=== PATIENT | male | born 1970 | race Caucasian/White ===

== ENCOUNTER 2023-08-27 15:06 | Emergency (ER) | payer OTHER ==
--- NOTE | 2023-08-27 15:09 | ERPHSYRPT ---
- History of Present Illness Time Seen by Provider: 08/27/23 15:09 Source: patient, family Exam Limitations: no limitations Physician History: This is an overweight 53-year-old white male patient who for the last 2 to 3 weeks has been feeling fatigued and noticed increased thirst and increased urination. A few days ago, the patient was seen by his primary care provider who is stationed at a different, outside facility and is awaiting lab results. Today, he was out in the sun and heat and was at a [employer] and experienced increased fatigue and dizziness. A friend at the [employer] had a glucometer and it read "high". Typically this means a blood sugar greater than 600. When the patient arrived to the emergency department here at [facility], we repeated the frlio-fm-xsuj/Accu-Chek blood sugar level. Our glucometer also read "high". Patient has never been diagnosed with diabetes and that was what he was being worked up for. Patient denies chest pain. He has no shortness of breath. He denies abdominal pain. He has not had any nausea vomiting or diarrhea symptoms. Patient does have a history of hypertension and anxiety/depression issues Timing/Duration: week(s) (2 to 3 weeks), worse Severity: moderate Associated Symptoms: malaise, weakness, other (Increased thirst and increased urination), No nausea, No vomiting, No abdominal pain Allergies/Adverse Reactions: No Known Drug Allergies Allergy (Verified 08/27/23 15:20) Home Medications: Bupropion HCl Xl 150 mg [Wellbutrin XL 150 MG] 150 mg PO DAILY 08/27/23 [History] Lisinopril 20 mg [Zestril 20 MG] 20 mg PO DAILY 08/27/23 [History] Loratadine 10 mg [Claritin 10 mg] 10 mg PO DAILY 08/27/23 [History] Magnesium Oxide 400 mg [Mag-Ox 400] 400 mg PO DAILY 08/27/23 [History] Propranolol HCl 20 mg PO TID 08/27/23 [History] Sertraline HCl 50 mg [Zoloft 50 mg Tablet] 50 mg PO DAILY 08/27/23 [History] Vitamin B Complex 1 tab PO DAILY 08/27/23 [History] Travel Risk - International Travel Have you traveled outside of the country in past 3 weeks: No - Emerging Infectious Disease Are you exhibiting symptoms associated with any current EIDs: No - Review of Systems Constitutional: Fatigue, Weakness Eyes: No Symptoms Ears, Nose, & Throat: No Symptoms Respiratory: No Symptoms Cardiac: No Symptoms Abdominal/Gastrointestinal: No Symptoms Genitourinary Symptoms: No Symptoms Musculoskeletal: No Symptoms Skin: No Symptoms Neurological: No Symptoms Psychological: No Symptoms Endocrine: Polyuria, Polydipsia Hematologic/Lymphatic: No Symptoms Immunological/Allergic: No Symptoms All Other Systems: Reviewed and Negative - Past Medical History Pertinent Past Medical History: Yes - Nursing Vital Signs Nursing Vital Signs: Initial Vital Signs Pulse Rate 83 08/27/23 15:07 Respiratory Rate 28 H 08/27/23 15:07 Blood Pressure 140/97 08/27/23 15:07 O2 Sat by Pulse Oximetry 96 08/27/23 15:07 Pain Scale Pain Intensity 0 - Physical Exam General Appearance: no apparent distress, alert Eye Exam: PERRL/EOMI, eyes nml inspection Ears, Nose, Throat Exam: dry mucous membranes Neck Exam: normal inspection, non-tender, supple, full range of motion Respiratory Exam: normal breath sounds, lungs clear, airway intact, No chest tenderness, No respiratory distress Cardiovascular Exam: regular rate/rhythm, normal heart sounds, normal peripheral pulses Gastrointestinal/Abdomen Exam: soft, normal bowel sounds, No tenderness Rectal Exam: not done Back Exam: normal inspection, normal range of motion, No CVA tenderness, No vertebral tenderness Extremity Exam: normal inspection, normal range of motion, pelvis stable Neurologic Exam: alert, oriented x 3, cooperative, dining car hop II-XII nml as tested, nml cerebellar function, nml station & gait, sensation nml Skin Exam: normal color, warm, dry Lymphatic Exam: No adenopathy SpO2 Interpretation: normal O2 Delivery: Room Air - Course Nursing assessment & vital signs reviewed: Yes Ordered Tests: Active Orders 24 hr Category Date Time Status Principal Software Architect STAT Care 08/27/23 15:56 Active EKG-ER Only STAT Care 08/27/23 15:55 Active IV Insertion STAT Care 08/27/23 15:55 Active Pulse Oximetry (ED) STAT Care 08/27/23 15:55 Active BMP Stat Lab 08/27/23 18:19 Completed CBC W DIFF Stat Lab 08/27/23 16:00 Completed CMP Stat Lab 08/27/23 16:00 Completed ETHYL ALCOHOL Stat Lab 08/27/23 16:00 Completed Lactic Acid Stat Lab 08/27/23 18:10 Received Lactic Acid Urgent Lab 08/27/23 15:55 Completed MAGNESIUM Stat Lab 08/27/23 16:00 Completed POCT GLUCOSE Stat Lab 08/27/23 17:39 Completed TROPONIN Q4H Lab 08/27/23 16:00 Completed TROPONIN Q4H Lab 08/27/23 18:19 Completed UA W/RFX UR CULTURE Stat Lab 08/27/23 16:03 Completed Medication Summary Discontinued Medications Generic Name Dose Route Start Last Admin Trade Name Freq PRN Reason Stop Dose Admin Sodium Chloride 1,000 mls @ 999 mls/hr 08/27/23 15:55 08/27/23 17:29 Sodium Chloride 0.9% 1000 Ml IV 08/27/23 16:55 Infused .Q1H1M STA Infusion Sodium Chloride Confirm 08/27/23 16:05 Sodium Chloride 0.9% 1000 Ml Administered 08/27/23 16:06 Dose 1,000 mls @ ud .ROUTE .STK-MED ONE Lactated Ringer's 1,000 mls @ 999 mls/hr 08/27/23 16:50 08/27/23 17:57 Lactated Ringers IV 08/27/23 17:50 Infused .Q1H1M ONE Infusion Lactated Ringer's Confirm 08/27/23 16:54 Lactated Ringers Administered 08/27/23 16:55 Dose 1,000 mls @ ud IV .STK-MED ONE Insulin Human Regular 15 unit 08/27/23 15:57 08/27/23 16:07 Insulin Regular, Human 1 Unit IV 08/27/23 15:58 15 unit STAT ONE Administration Insulin Human Regular Confirm 08/27/23 16:05 Insulin Regular, Human 1 Unit Administered 08/27/23 16:06 Dose 15 unit .ROUTE .STK-MED ONE Ondansetron HCl 4 mg 08/27/23 15:55 08/27/23 16:07 Ondansetron Hcl 4 Mg/2 Ml Vial IV 08/27/23 15:56 4 mg STAT ONE Administration Ondansetron HCl Confirm 08/27/23 16:04 Ondansetron Hcl 4 Mg/2 Ml Vial Administered 08/27/23 16:05 Dose 4 mg .ROUTE .STK-MED ONE Ondansetron HCl Confirm 08/27/23 16:10 Ondansetron Hcl 4 Mg/2 Ml Vial Administered 08/27/23 16:11 Dose 4 mg .ROUTE .STK-MED ONE Lab/Rad Data: Laboratory Result Diagrams 08/27/23 16:00 08/27/23 18:19 Laboratory Results 08/27/23 08/27/23 08/27/23 Range/Units 18:19 18:19 17:39 WBC (4.23-9.07) x10^3/uL RBC (4.63-6.08) x10^6/uL Hgb (13.7-17.5) g/dL Hct (40.1-51.0) % MCV (79.0-92.2) fL MCH (25.7-32.2) pg MCHC (32.3-36.5) g/dL RDW (11.6-14.4) % Plt Count (163-337) x10^3/uL MPV (9.4-12.4) fL Gran % (34.0-67.9) % Immature Gran % (Auto) (0.001-0.429) % Nucleat RBC Rel Count (0.00-0.2) % Eos # (Auto) (0.04-0.54) x10^3/uL Immature Gran # (Auto) (0.001-0.031) x10^3u/L Absolute Lymphs (auto) (1.32-3.57) x10^3/uL Absolute Monos (auto) (0.30-0.82) x10^3/uL Absolute Nucleated RBC (0.00-0.012) x10^3u/L Lymphocytes % (21.8-53.1) % Monocytes % (5.3-12.2) % Eosinophils % (0.8-7.0) % Basophils % (0.2-1.2) % Absolute Granulocytes (1.78-5.38) x10^3/uL Basophils # (0.01-0.08) x10^3/uL Sodium 133 L (135-145) mmol/L Potassium 4.0 (3.5-5.1) mmol/L Chloride 103 (98-107) mmol/L Carbon Dioxide 24 (22-30) mmol/L Anion Gap 10.2 (5-15) MEQ/L BUN 11 (9-20) mg/dL Creatinine 0.89 (0.66-1.25) mg/dL Estimated GFR 103.8 ML/MIN Glucose 268 H (74-106) mg/dL POC Glucometer 248 H (74 to 106) mg/dL Hemoglobin A1c (4.5-6.0) % Lactic Acid (0.4-2.0) Calcium 8.9 (8.4-10.2) mg/dL Magnesium (1.6-2.3) mg/dL Total Bilirubin (0.2-1.3) mg/dL AST (17-59) U/L ALT (0-50) U/L Alkaline Phosphatase (38-126) U/L Troponin I < 0.012 (0.000-0.033) ng/mL Serum Total Protein (6.3-8.2) g/dL Albumin (3.5-5.0) g/dL Urine Color (Yellow) Urine Appearance (Clear) Urine pH (4.6-8.0) Ur Specific [place] (1.005-1.030) Urine Protein (Negative) Urine Glucose (UA) (Negative) mg/dL Urine Ketones (Negative) Urine Blood (Negative) Urine Nitrite (Negative) Urine Bilirubin (Negative) Urine Urobilinogen (0.2) mg/dL Ur Leukocyte Esterase (Negative) U Hyaline Cast (Auto) (0-2) /LPF Urine Microscopic RBC (0-5) /HPF Urine Microscopic WBC (0-5) /HPF Ur Epithelial Cells (None Seen) /HPF Urine Bacteria (None Seen) /HPF Urine Culture Reflexed (NO) Ethyl Alcohol (0-10) mg/dL 08/27/23 08/27/23 08/27/23 Range/Units 16:03 16:00 16:00 WBC (4.23-9.07) x10^3/uL RBC (4.63-6.08) x10^6/uL Hgb (13.7-17.5) g/dL Hct (40.1-51.0) % MCV (79.0-92.2) fL MCH (25.7-32.2) pg MCHC (32.3-36.5) g/dL RDW (11.6-14.4) % Plt Count (163-337) x10^3/uL MPV (9.4-12.4) fL Gran % (34.0-67.9) % Immature Gran % (Auto) (0.001-0.429) % Nucleat RBC Rel Count (0.00-0.2) % Eos # (Auto) (0.04-0.54) x10^3/uL Immature Gran # (Auto) (0.001-0.031) x10^3u/L Absolute Lymphs (auto) (1.32-3.57) x10^3/uL Absolute Monos (auto) (0.30-0.82) x10^3/uL Absolute Nucleated RBC (0.00-0.012) x10^3u/L Lymphocytes % (21.8-53.1) % Monocytes % (5.3-12.2) % Eosinophils % (0.8-7.0) % Basophils % (0.2-1.2) % Absolute Granulocytes (1.78-5.38) x10^3/uL Basophils # (0.01-0.08) x10^3/uL Sodium (135-145) mmol/L Potassium (3.5-5.1) mmol/L Chloride (98-107) mmol/L Carbon Dioxide (22-30) mmol/L Anion Gap (5-15) MEQ/L BUN (9-20) mg/dL Creatinine (0.66-1.25) mg/dL Estimated GFR ML/MIN Glucose (74-106) mg/dL POC Glucometer (74 to 106) mg/dL Hemoglobin A1c 13.22 H (4.5-6.0) % Lactic Acid (0.4-2.0) Calcium (8.4-10.2) mg/dL Magnesium (1.6-2.3) mg/dL Total Bilirubin (0.2-1.3) mg/dL AST (17-59) U/L ALT (0-50) U/L Alkaline Phosphatase (38-126) U/L Troponin I < 0.012 (0.000-0.033) ng/mL Serum Total Protein (6.3-8.2) g/dL Albumin (3.5-5.0) g/dL Urine Color Yellow (Yellow) Urine Appearance Clear (Clear) Urine pH 5.5 (4.6-8.0) Ur Specific [place] >=1.030 A (1.005-1.030) Urine Protein Negative (Negative) Urine Glucose (UA) >=1000 A (Negative) mg/dL Urine Ketones Negative (Negative) Urine Blood Negative (Negative) Urine Nitrite Negative (Negative) Urine Bilirubin Negative (Negative) Urine Urobilinogen 0.2 (0.2) mg/dL Ur Leukocyte Esterase Negative (Negative) U Hyaline Cast (Auto) NONE SEEN (0-2) /LPF Urine Microscopic RBC 0-2 (0-5) /HPF Urine Microscopic WBC 0-2 (0-5) /HPF Ur Epithelial Cells None Seen (None Seen) /HPF Urine Bacteria None Seen (None Seen) /HPF Urine Culture Reflexed NO (NO) Ethyl Alcohol (0-10) mg/dL 08/27/23 08/27/23 08/27/23 Range/Units 16:00 16:00 15:55 WBC 6.2 (4.23-9.07) x10^3/uL RBC 4.93 (4.63-6.08) x10^6/uL Hgb 15.2 (13.7-17.5) g/dL Hct 45.3 (40.1-51.0) % MCV 91.9 (79.0-92.2) fL MCH 30.8 (25.7-32.2) pg MCHC 33.6 (32.3-36.5) g/dL RDW 12.0 (11.6-14.4) % Plt Count 232 (163-337) x10^3/uL MPV 10.7 (9.4-12.4) fL Gran % 61.1 (34.0-67.9) % Immature Gran % (Auto) 0.2 (0.001-0.429) % Nucleat RBC Rel Count 0.0 (0.00-0.2) % Eos # (Auto) 0.09 (0.04-0.54) x10^3/uL Immature Gran # (Auto) 0.01 (0.001-0.031) x10^3u/L Absolute Lymphs (auto) 1.75 (1.32-3.57) x10^3/uL Absolute Monos (auto) 0.50 (0.30-0.82) x10^3/uL Absolute Nucleated RBC 0.00 (0.00-0.012) x10^3u/L Lymphocytes % 28.3 (21.8-53.1) % Monocytes % 8.1 (5.3-12.2) % Eosinophils % 1.5 (0.8-7.0) % Basophils % 0.8 (0.2-1.2) % Absolute Granulocytes 3.78 (1.78-5.38) x10^3/uL Basophils # 0.05 (0.01-0.08) x10^3/uL Sodium 128 L (135-145) mmol/L Potassium 4.7 (3.5-5.1) mmol/L Chloride 95 L (98-107) mmol/L Carbon Dioxide 17 L (22-30) mmol/L Anion Gap 20.1 H (5-15) MEQ/L BUN 11 (9-20) mg/dL Creatinine 1.00 (0.66-1.25) mg/dL Estimated GFR 91.1 ML/MIN Glucose 651 H* (74-106) mg/dL POC Glucometer (74 to 106) mg/dL Hemoglobin A1c (4.5-6.0) % Lactic Acid 4.8 H (0.4-2.0) Calcium 9.6 (8.4-10.2) mg/dL Magnesium 2.1 (1.6-2.3) mg/dL Total Bilirubin 1.20 (0.2-1.3) mg/dL AST 57 (17-59) U/L ALT 71 H (0-50) U/L Alkaline Phosphatase 133 H (38-126) U/L Troponin I (0.000-0.033) ng/mL Serum Total Protein 7.4 (6.3-8.2) g/dL Albumin 4.4 (3.5-5.0) g/dL Urine Color (Yellow) Urine Appearance (Clear) Urine pH (4.6-8.0) Ur Specific [place] (1.005-1.030) Urine Protein (Negative) Urine Glucose (UA) (Negative) mg/dL Urine Ketones (Negative) Urine Blood (Negative) Urine Nitrite (Negative) Urine Bilirubin (Negative) Urine Urobilinogen (0.2) mg/dL Ur Leukocyte Esterase (Negative) U Hyaline Cast (Auto) (0-2) /LPF Urine Microscopic RBC (0-5) /HPF Urine Microscopic WBC (0-5) /HPF Ur Epithelial Cells (None Seen) /HPF Urine Bacteria (None Seen) /HPF Urine Culture Reflexed (NO) Ethyl Alcohol < 10 (0-10) mg/dL - Progress Progress: improved, re-examined Progress Note: 08/27/23 16:17 My medical decision making and the assignment of moderate complexity to this patient's medical issue is based on review of the patient's past medical history, review the patient's medication list, review the patient drug allergy list, history present illness and physical findings on examination. The workup in this patient includes placement of intravenous line, infusion of normal saline solution, infusion of intravenous insulin, CBC, CMP, magnesium level, urinalysis, hemoglobin A1c, ethyl alcohol level. 08/27/23 16:19 Differential diagnosis includes but is not limited to hyperglycemia, DKA, electrolyte abnormalities, dehydration, urinary tract infection 08/27/23 19:32 Interpreted the patient's laboratory data results. Patient's blood sugar has now decreased to 248 by Accu-Chek and 268 my blood drawl. He now has a normal anion gap and a normal CO2 level. This was after the patient had received a liter of normal saline intravenously and a liter of lactated Ringer's intravenously. Patient states he is feeling much better. His sodium has improved to 133 which was up from 129 on the earlier draw. 08/27/23 19:33 Counseled pt/family regarding: lab results, diagnosis, need for follow-up Medical Desision Making - Independent Historian Additional History obtained from: Spouse - Risk of complications Low Risk: Low risk of morbidity from additional dx testing or treatment - Departure Departure Disposition: Home Clinical Impression: Elevated hemoglobin A1c, Hyperglycemia, Hyponatremia Condition: Stable Critical Care Time: No Referrals: SHERIE ALEXANDER NP [Primary Care Provider] - Follow up/PCP as directed Instructions: Carb counting for adults with diabetes, Diabetes and diet Additional Instructions: Plenty of fluids. Consume a diabetic diet over the weekend. If you have the opportunity, borrowed glucometer and try to check your blood sugar morning and night beginning tomorrow, 08/28/2023. If you are having similar symptoms then return to the emergency department for reevaluation. Call your primary care provider on Tuesday morning, 08/29/2023, to make arrangements for follow-up appointment to be seen in the next 2 to 3 days and address your hyperglycemia and elevated hemoglobin A1c levels.
[2023-08-27 16:04] LABS: Absolute Neutrophil Ct (ANC) 3.78 x10^3/uL (1.78-5.38); BASOPHIL % 0.8 % (0.2-1.2); Basophil (Absolute #) 0.05 x10^3/uL (0.01-0.08); Eosinophil % 1.5 % (0.8-7.0); Eosinophil (Absolute #) 0.09 x10^3/uL (0.04-0.54); Hematocrit 45.3 % (40.1-51.0); Hemoglobin 15.2 g/dL (13.7-17.5); IMMATURE GRAN # 0.01 x10^3u/L (0.001-0.031); IMMATURE GRAN % 0.2 % (0.001-0.429); Lymphocyte (Absolute #) 1.75 x10^3/uL (1.32-3.57); Lymphocytes % 28.3 % (21.8-53.1); Mean Cell Volume 91.9 fL (79.0-92.2); Mean Corpuscular Hemoglobin 30.8 pg (25.7-32.2); Mean Corpuscular Hgb Concent. 33.6 g/dL (32.3-36.5); Mean Platelet Volume 10.7 fL (9.4-12.4); Monocytes % 8.1 % (5.3-12.2); Neutrophil % 61.1 % (34.0-67.9); Platelet Count 232 x10^3/uL (163-337); Red Blood Count 4.93 x10^6/uL (4.63-6.08); White Blood Count 6.2 x10^3/uL (4.23-9.07)
[2023-08-27] MEDS ORDERED: Zofran 4 MG/2 ML VIAL ONE ×2 (16:04→16:10)
[2023-08-27] MEDS ORDERED: HUMULIN R ONE (16:05)
[2023-08-27] MEDS ORDERED: Sodium Chloride 0.9% 1000 ML 1,000 ML ONE (16:05)
[2023-08-27] MEDS: Zofran 4 MG/2 ML VIAL IV ONE (16:07)
[2023-08-27] MEDS: HUMULIN R IV ONE (16:07)
[2023-08-27] MEDS: Sodium Chloride 0.9% 1000 ML 1,000 ML IV STA (16:08)
[2023-08-27 16:18] LABS: ALBUMIN 4.4 g/dL (3.5-5.0); ALKALINE PHOSPHATASE 133 U/L (38-126); ANION GAP 20.1 MEQ/L (5-15); BLOOD UREA NITROGEN 11 mg/dL (9-20); CHLORIDE 95 mmol/L (98-107); Calcium 9.6 mg/dL (8.4-10.2); Carbon Dioxide 17 mmol/L (22-30); EST GLOMERULAR FILTRATION RATE 91.1 ML/MIN; ETHYL ALCOHOL < 10 mg/dL (0-10); MAGNESIUM 2.1 mg/dL (1.6-2.3); Potassium 4.7 mmol/L (3.5-5.1); SGOT/AST 57 U/L (17-59); SGPT/ALT 71 U/L (0-50); SODIUM 128 mmol/L (135-145); Total Protein 7.4 g/dL (6.3-8.2)
[2023-08-27 16:41] LABS: Glucose 651 mg/dL (74-106)
[2023-08-27] MEDS ORDERED: Lactated Ringers 1,000 ML IV ONE (16:54)
[2023-08-27] MEDS: Lactated Ringers 1,000 ML IV ONE (16:55)
[2023-08-27 17:03] LABS: Appearance Clear (Clear); Bacteria None Seen /HPF (None Seen); Bilirubin Negative (Negative); Blood Negative (Negative); Epithelial Cells None Seen /HPF (None Seen); Glucose, Urine >=1000 mg/dL (Negative); Hyaline Casts NONE SEEN /LPF (0-2); Ketones Negative (Negative); Leukocyte Esterase Negative (Negative); Nitrite Negative (Negative); Ph 5.5 (4.6-8.0); Protein,Urine Dip Negative (Negative); RBC 0-2 /HPF (0-5); Specific Gravity >=1.030 (1.005-1.030); Urobilinogen 0.2 mg/dL (0.2); WBC 0-2 /HPF (0-5)
[2023-08-27 17:26] LABS: ADD URINE CULTURE? NO (NO)
[2023-08-27 18:32] LABS: ANION GAP 10.2 MEQ/L (5-15); Calcium 8.9 mg/dL (8.4-10.2); Creatinine 1 0.89 mg/dL (0.66-1.25); EST GLOMERULAR FILTRATION RATE 103.8 ML/MIN
[2023-08-27 19:23] VITALS: BP 141/87; PULSE 72; RESP 25; O2SAT 95
== END 2023-08-27 19:45 | disposition home or self-care (01) ==
LOC: ED 15:06
DX: R79.89 Other specified abnormal findings of blood chemistry (principal); R73.9 Hyperglycemia, unspecified; E87.1 Hypo-osmolality and hyponatremia; R53.83 Other fatigue; R42 Dizziness and giddiness; I10 Essential (primary) hypertension; Z79.899 Other long term (current) drug therapy
CPT/HCPCS: 36000; 36415; 80048; 80053; 81001; 82077; 82947; 83036; 83605; 83735; 84484; 85025; 93005; 93041; 94760; 96374; 96375; 99284; J1815; J2405